=== PATIENT | female | born 1960 | race Caucasian/White ===

== ENCOUNTER → 2018-03-08 | Outpatient (CLI) | payer BC ==
--- NOTE | 2018-03-08 14:51 | BD ---
EXAMINATION TYPE: MG DEXA axial skeleton. DATE OF EXAM: 03/08/2018 COMPARISON: NONE CLINICAL HISTORY: 57 YR OLD FEMALE.....ICD-10 CODE: Z78.0 ASYMPTOMATIC Height: 67.5 Weight: 170 FRAX RISK QUESTIONS: Alcohol (3 or more units per day): NO Family History (Parent hip fracture): NO Glucocorticoids (More than 3mos): NO (Ex: prednisone, prednisolone, methylprednisolone, dexamethasone, and hydrocortisone). History of Fracture in Adulthood: NO Secondary Osteoporosis: NO 1. Type 1 Diabetes: NO 2. Hyperthyroidism: NO 3. Menopause before 45: NO 4. Malnutrition: NO 5. Chronic liver disease: NO Rheumatoid Arthritis: NO Current Tobacco Use: NO RISK FACTORS HISTORY OF: Active: YES Diet low in dairy products/other sources of calcium: NO Postmenopausal woman: YES AT AGE 50 Hyperparathyroidism: NO Adrenal Insufficiency: NO MEDICATIONS: Prednisone or other steroids: ALBUTEROL INHALER PRN How Long: YRS Additional Medications: ENDURAL,CELEXA, STATIN FOR CHOLESTEROL, Additional History: TREMORS EXAM MEASUREMENTS: Bone mineral densitometry was performed using the [employer] System. Bone mineral density as measured about the Lumbar spine is: ----- L1-L4(G/cm2): 1.701 T Score Values are as follows: ----- L1: 2.0 ----- L2: 5.5 ----- L3: 4.6 ----- L4: 4.9 ----- L1-L4: 4.3 Bone mineral density FIRST BONE DENSITY AT MPH Bone mineral density about the R hip (g/cm2): 0.974 Bone mineral density about the L hip (g/cm2): 1.010 T Score values are as follows: -----R Neck: -0.7 -----L Neck: -0.5 -----R Total: -0.3 -----L Total: 0.0 Bone mineral density FIRST BONE DENSITY AT MPH FRAX%S: THERE IS A6.7% CHANCE OF A MAJOR OSTEOPOROTIC FX AND A 0.3% FOR HIP FX.....PROBABILITY OF FX IN 10 YRS TIME IMPRESSION: Normal (Values between +1 and -1 indicate normal bone mass). Consider repeating this study in 5 year s or sooner if there is some new clinical indication. NOTE: T-SCORE=SD OF THE YOUNG ADULT MEAN.
--- NOTE | 2018-03-09 12:00 | MM ---
Reason for exam: screening (asymptomatic). Last mammogram was performed 1 year and 11 months ago. History: Patient is postmenopausal and had first child at age 33. Family history of breast cancer in aunt at age 60. Benign excisional biopsy of the left breast, 1983. Physical Findings: A clinical breast exam by your physician is recommended on an annual basis and results should be correlated with mammographic findings. MG 3D Screening Mammo W/Cad Bilateral CC and MLO view(s) were taken. Prior study comparison: April 01, 2016, bilateral MG diagnostic mammo w CAD SARY. March 24, 2014, bilateral digital screening mammo w/CAD. The breast tissue is heterogeneously dense. This may lower the sensitivity of mammography. Previous mammotome biopsy in the right breast. There is chronic nodularity in the right breast. No significant changes when compared with prior studies. ASSESSMENT: Benign, BI-RAD 2 RECOMMENDATION: Routine screening mammogram of both breasts in 1 year.
== END | disposition home or self-care (01) ==
LOC: RADMAMWWP 12:51
PROVIDERS: ATTEND Family Medicine
DX: R07.9 Chest pain, unspecified (principal); R53.83 Other fatigue
CPT/HCPCS: 77063; 77067; 77080

== ENCOUNTER → 2019-01-11 | Outpatient (CLI) | payer BC ==
[2019-01-11 18:42] LABS: T4, Free (Free Thyroxine) 1.1 ng/dL (0.80-1.80); Vitamin D 25 Hydroxy 19.9 ng/mL (30.0-100.0)
[2019-01-11 20:19] LABS: Anti-DNA, DS unit <1.0 IU/mL; DNA Double-Stranded NEGATIVE (NEGATIVE)
== END | disposition home or self-care (01) ==
LOC: LABWHC1 11:08
PROVIDERS: ATTEND Psychiatry & Neurology Neurology
DX: M79.10 Myalgia, unspecified site (principal); R25.1 Tremor, unspecified; M25.50 Pain in unspecified joint
CPT/HCPCS: 36415; 82306; 84439; 84443; 85652; 86038; 86225

== ENCOUNTER → 2019-01-17 | Outpatient (CLI) | payer MEDICARE ==
--- NOTE | 2019-01-20 21:26 | MR ---
EXAMINATION TYPE: MR brain wo/w con DATE OF EXAM: 01/17/2019 COMPARISON: NONE HISTORY: 58-year-old female rule out left basal ganglionic Cerebrovascular disease or neoplasm. Tremo r and discoordination, right arm. TECHNIQUE: Multiplanar, multisequence images of the brain and brainstem were acquired before and aft er administration of 7.5 mL IV Gadavist. Diffusion weighted imaging is performed. FINDINGS: No evidence for acute infarction, hemorrhage, mass, mass effect, midline shift, herniation, effacemen t of basal cisterns, or extra-axial fluid collection. The ventricles and sulci are age appropriate with mild generalized supratentorial volume loss. Major intracranial flow voids are intact. T2/FLAIR weighted sequences show moderate scattered burden of bright white matter change in both cere bral hemispheres including the subcortical, deep, and periventricular regions. Right greater than lef t basal ganglionic lacunar infarcts are also demonstrated. Midline structures demonstrate normal morphology. The craniocervical junction is normal. Post contrast images demonstrate no evidence of pathologic enhancement. Dural venous sinuses are pat ent. Mild mucosal thickening right maxillary sinus and moderate within the ethmoid air cells. Orbits and g lobes are intact. IMPRESSION: 1. No acute intracranial abnormality seen. No enhancing lesions. 2. Moderate scattered burden of T2 bright white matter change, nonspecific, likely relating to change s of chronic small vessel ischemic disease. Sequela of chronic migraines, Lyme's disease, hypertensio n, and demyelinating disease are some other differential considerations. 3. Moderate chronic ethmoid sinus disease.
== END | disposition home or self-care (01) ==
LOC: RADMRIMAIN 11:55
PROVIDERS: ATTEND Psychiatry & Neurology Neurology
DX: R90.89 Other abnormal findings on diagnostic imaging of central nervous system (principal); R25.1 Tremor, unspecified
CPT/HCPCS: 82565; 70553; 36415; A9585

== ENCOUNTER → 2019-03-11 | Outpatient (CLI) | payer MEDICARE ==
--- NOTE | 2019-03-12 10:00 | MM ---
Reason for exam: screening (asymptomatic). Last mammogram was performed 1 year ago. History: Patient is postmenopausal and had first child at age 33. Family history of breast cancer in aunt at age 60. Benign excisional biopsy of the left breast, 1983. Physical Findings: A clinical breast exam by your physician is recommended on an annual basis and results should be correlated with mammographic findings. MG 3D Screening Mammo W/Cad Bilateral CC and MLO view(s) were taken. Prior study comparison: March 08, 2018, bilateral MG 3d screening mammo w/cad. April 01, 2016, bilateral MG diagnostic mammo w CAD SARY. The breast tissue is heterogeneously dense. This may lower the sensitivity of mammography. Post biposy change on the left. ASSESSMENT: Benign, BI-RAD 2 RECOMMENDATION: Routine screening mammogram of both breasts in 1 year.
== END ==
LOC: RADMAMWWP 07:58
PROVIDERS: ATTEND Family Medicine
DX: Z12.31 Encounter for screening mammogram for malignant neoplasm of breast (principal)
CPT/HCPCS: 77063; 77067

== ENCOUNTER → 2020-08-06 | Outpatient (CLI) | payer MEDICARE ==
--- NOTE | 2020-08-07 11:55 | MM ---
Reason for exam: screening (asymptomatic). Last mammogram was performed 1 year and 5 months ago. History: Patient is postmenopausal and had first child at age 33. Family history of breast cancer in aunt at age 60. Benign excisional biopsy of the left breast, 1983. Physical Findings: A clinical breast exam by your physician is recommended on an annual basis and results should be correlated with mammographic findings. MG 3D Screening Mammo W/Cad Bilateral CC and MLO view(s) were taken. Prior study comparison: March 11, 2019, bilateral MG 3d screening mammo w/cad. March 08, 2018, bilateral MG 3d screening mammo w/cad. The breast tissue is heterogeneously dense. This may lower the sensitivity of mammography. There is no discrete abnormality. No significant changes when compared with prior studies. ASSESSMENT: Negative, BI-RAD 1 RECOMMENDATION: Routine screening mammogram of both breasts in 1 year.
== END | disposition home or self-care (01) ==
LOC: RADMAMWWP 10:17
PROVIDERS: ATTEND Family Medicine
DX: Z12.31 Encounter for screening mammogram for malignant neoplasm of breast (principal)
CPT/HCPCS: 77063; 77067

== ENCOUNTER → 2022-02-23 | Outpatient (CLI) | payer MEDICARE ==
--- NOTE | 2022-02-23 14:57 | BD ---
EXAMINATION TYPE: Axial Bone Density DATE OF EXAM: 02/23/2022 COMPARISON: 03.08.2018 DEXA bone scan. CLINICAL HISTORY: 61 years year old Female. ICD-10 CODE: Z78.0 POST MENOPAUSAL WITHOUT HRT Height: 66.8 Weight: 168 FRAX RISK QUESTIONS: NOTHING TO NOTE HERE RISK FACTORS HISTORY OF: Diet low in dairy products/other sources of calcium: YES Postmenopausal woman: YES, AT AGE 52 YRS OLD Hyperparathyroidism: NO Adrenal Insufficiency: NO MEDICATIONS: Additional Medications: CELEXA, PROPANOL, ANTI-SEIZURE MEDS, STATIN FOR CHOLESTEROL, VIT D, CLONOPIN Additional History: NON ESSENTIAL TREMORS, CHOLESTEROL, ANXIETY/DEPRESSION, EXAM MEASUREMENTS: Bone mineral densitometry was performed using the [employer] System. Bone mineral density as measured about the Lumbar spine is: ----- L1-L4(G/cm2): 1.591 T Score Values are as follows: ----- L1: 2.7 ----- L2: 4.3 ----- L3: 2.8 ----- L4: 3.5 ----- L1-L4: 3.4 Bone mineral density has: Decreased -8.8% since study of: 03.08.2018 Bone mineral density about the R hip (g/cm2): 0.974 Bone mineral density about the L hip (g/cm2): 0.969 T Score values are as follows: -----R Neck: -0.9 -----L Neck: -0.7 -----R Total: -0.3 -----L Total: -0.3 Bone mineral density has: Decreased -2.1% since study of: 03.08.2018 FRAX%s: The graph provided illustrates a 7.7% chance for a major osteoporotic fx and a 0.5% chance fo r the hips probability for fx in 10 years time. IMPRESSION: Normal (Values between +1 and -1 indicate normal bone mass). Consider repeating this study in 5 year s or sooner if there is some new clinical indication. NOTE: T-SCORE=SD OF THE YOUNG ADULT MEAN.
--- NOTE | 2022-02-25 08:51 | MM ---
Reason for exam: screening (asymptomatic). Last mammogram was performed 1 year and 7 months ago. History: Patient is postmenopausal and had first child at age 33. Family history of breast cancer in aunt at age 60. Benign excisional biopsy of the left breast, 1983. Physical Findings: A clinical breast exam by your physician is recommended on an annual basis and results should be correlated with mammographic findings. MG 3D Screening Mammo W/Cad Bilateral CC and MLO view(s) were taken. Prior study comparison: August 06, 2020, bilateral MG 3d screening mammo w/cad. March 11, 2019, bilateral MG 3d screening mammo w/cad. The breast tissue is heterogeneously dense. This may lower the sensitivity of mammography. No significant changes when compared with prior studies. ASSESSMENT: Benign, BI-RAD 2 RECOMMENDATION: Routine screening mammogram of both breasts in 1 year.
== END | disposition home or self-care (01) ==
LOC: RADMAMWWP 08:58
PROVIDERS: ATTEND Family Medicine
DX: Z12.31 Encounter for screening mammogram for malignant neoplasm of breast (principal); Z78.0 Asymptomatic menopausal state; Z80.3 Family history of malignant neoplasm of breast
CPT/HCPCS: 77063; 77067; 77080

== ENCOUNTER → 2022-09-22 | Outpatient (CLI) | payer MEDICARE ==
--- NOTE | 2022-09-22 17:31 | XR ---
EXAMINATION: XR chest 2V DATE AND TIME: 09/22/2022 4:23 PM CLINICAL INDICATION: G25.0 ESSENTIAL TREMOR TECHNIQUE: PA and lateral COMPARISON: None FINDINGS: The lungs are clear. The pleural spaces are negative. The cardiac silhouette is not enlarged. The remainder of the mediastinal silhouette is unremarkable. The skeletal structures and soft tissues are negative for acute findings. IMPRESSION: NO ACUTE PROCESS.
== END | disposition home or self-care (01) ==
LOC: RADXRMAIN 16:12
PROVIDERS: ATTEND Neurological Surgery
DX: G25.0 Essential tremor (principal)
CPT/HCPCS: 71046

== ENCOUNTER → 2022-09-22 | Outpatient (CLI) | payer MEDICARE ==
[2022-09-22 23:22] LABS: Basophils # (A) 0.02 X 10*3/uL (0.00-0.10); Basophils % (A) 0.4 %; Eosinophils # (A) 0.14 X 10*3/uL (0.04-0.35); Eosinophils % (A) 2.5 %; HCT 45.5 % (37.2-46.3); HGB 15.6 g/dL (12.0-15.0); Immature Grans, Automated 0.2 %; Lymphocytes # (A) 1.11 X 10*3/uL (0.90-5.00); Lymphocytes % (A) 20.1 %; MCH 32.6 pg (27.0-32.0); MCHC 34.3 g/dL (32.0-37.0); Mean Platelet Volume 9.1 fL (9.5-12.2); Monocytes # (A) 0.43 X 10*3/uL (0.20-1.00); Monocytes % (A) 7.8 %; NRBC Per 100 WBC 0 /100 WBCS (0.0-0.0); Neutrophils # (A) 3.82 X 10*3/uL (1.80-7.70); Platelet Count 250 X 10*3/uL (140-440); RBC 4.79 X 10*6/uL (4.10-5.20); WBC 5.53 X 10*3/uL (4.50-10.00)
[2022-09-22 23:43] LABS: ALT <5 U/L (8-44); AST 22 U/L (13-35); African American GFR (CKD) 70.9 (60.0-200.0); Albumin 4.3 g/dL (3.8-4.9); Albumin/Globulin Ratio 1.74 (1.60-3.17); Alkaline Phosphatase 90 U/L (41-126); BUN/Creat Ratio 12.28 Ratio (12.00-20.00); Calcium 9.1 mg/dL (8.7-10.3); Carbon Dioxide 31.3 mmol/L (20.0-27.5); Chloride 100 mmol/L (96-109); Globulin 2.5 g/dL (1.6-3.3); Glucose 103 mg/dL (70-110); Non-African American GFR(CKD) 61.2 (60.0-200.0); Potassium 4.3 mmol/L (3.5-5.5); Sodium 137 mmol/L (135-145); Total Protein 6.7 g/dL (6.2-8.2)
[2022-09-22 23:52] LABS: Appearance,Urine Cloudy (Clear); Bilirubin,Urine Negative (Negative); Blood,Urine Negative (Negative); Color,Urine Yellow (Yellow); Ketones,Urine Negative (Negative); Nitrite,Urine Negative (Negative); Specific Gravity,Urine 1.011 (1.001-1.030)
[2022-09-23 00:18] LABS: Bacteria,Urine None Seen /HPF (None Seen)
== END | disposition home or self-care (01) ==
LOC: LABWHC1 15:59
PROVIDERS: ATTEND Family Medicine
DX: Z01.812 Encounter for preprocedural laboratory examination (principal); G25.0 Essential tremor
CPT/HCPCS: 36415; 80053; 81001; 83036; 85025; 85730; 87070

== ENCOUNTER → 2022-09-30 | Outpatient (CLI) | payer MEDICARE ==
[2022-10-01 11:38] LABS: INR 0.96 (0.90-1.11); Prothrombin Time 10.9 sec (9.9-11.9)
== END | disposition home or self-care (01) ==
LOC: LABWHC1 16:00
PROVIDERS: ATTEND Family Medicine
DX: Z01.818 Encounter for other preprocedural examination (principal); G25.0 Essential tremor
CPT/HCPCS: 36415; 85610

== ENCOUNTER → 2022-12-23 | Outpatient (CLI) | payer MEDICARE ==
--- NOTE | 2022-12-23 13:14 | US ---
EXAMINATION TYPE: US transvaginal DATE OF EXAM: 12/23/2022 COMPARISON: NONE CLINICAL HISTORY: N95.0 POSTMENOPAUSAL BLEEDING. Pt states postemenopausal vaginal spotting x 1 month TECHNIQUE: Transvaginal (TV). Transvaginal sonographic images of the pelvis were acquired. EXAM MEASUREMENTS: Uterus: 6.8 x 2.8 x 3.7 cm Endometrial Stripe: 0.2 cm Left Ovary: 1.8 x 1.1 x 1.5 cm 1. Uterus: Anteverted Heterogeneous 2. Endometrium: Small amount of fluid within canal= 0.6 x 0.4 x 0.6 cm 3. Right Ovary: Obscured by overlying bowel gas 4. Left Ovary: wnl 5. Bilateral Adnexa: wnl 6. Posterior cul-de-sac: wnl IMPRESSION: 1. Small amount of fluid within the endometrial canal. Pelvic ultrasound is otherwise unremarkable.
== END | disposition home or self-care (01) ==
LOC: RADUSWWP 12:00
PROVIDERS: ATTEND Family Medicine
DX: N95.0 Postmenopausal bleeding (principal)
CPT/HCPCS: 76830

== ENCOUNTER → 2023-05-05 | Outpatient (CLI) | payer MEDICARE ==
--- NOTE | 2023-05-08 08:39 | MM ---
Reason for Exam: Screening (asymptomatic). Last mammogram was performed 1 year(s) and 3 month(s) ago. Patient History: Menarche at age 16. First Full-Term at age 33. Late child-bearing (after 30). Postmenopausal. 1983, Benign Excisional Biopsy on the left side. Maternal aunt had breast cancer, age 60. Risk Values: Paola 5 year model risk: 2.4%. NCI Lifetime model risk: 9.5%. Prior Study Comparison: 03/11/2019 Bilateral Screening Mammogram, [facility]. 08/06/2020 Bilateral Screening Mammogram, [facility]. 02/23/2022 Bilateral Screening Mammogram, [facility]. Tissue Density: The breast tissue is heterogeneously dense. This may lower the sensitivity of mammography. Findings: Analyzed By CAD. There is no suspicious group of microcalcifications or new suspicious mass in either breast. Overall Assessment: Benign, BI-RAD 2 Management: Screening Mammogram of both breasts in 1 year. . Patient should continue monthly self-breast exams. A clinical breast exam by your physician is recommended on an annual basis. This exam should not preclude additional follow-up of suspicious palpable abnormalities. Note on Paola scores and lifetime risk: 1. A Paola score greater than 3% is considered moderate risk. If this is the case, consider specialist referral to assess eligibility for a risk reducing agent. 2. If overall lifetime risk for the development of breast cancer is 20% or higher, the patient may qualify for future screening with alternating mammogram and breast MRI. Electronically signed and approved by: Donnie Wolfe M.D. Radiologis
== END | disposition home or self-care (01) ==
LOC: RADMAMWWP 09:49
PROVIDERS: ATTEND Family Medicine
DX: Z12.31 Encounter for screening mammogram for malignant neoplasm of breast (principal); Z78.0 Asymptomatic menopausal state; Z80.3 Family history of malignant neoplasm of breast
CPT/HCPCS: 77063; 77067

== ENCOUNTER 2023-05-22 05:36 | Emergency (ER) | payer MEDICARE ==
[2023-05-22 05:46] VITALS: RESP 18; TEMP 98
[2023-05-22 06:42] LABS: Basophils % (A) 0 %; Eosinophils # (A) 0.1 k/uL (0-0.7); Eosinophils % (A) 2 %; HCT 45.5 % (34.0-46.0); HGB 15.6 gm/dL (11.4-16.0); Lymphocytes # (A) 0.9 k/uL (1.0-4.8); Lymphocytes % (A) 13 %; MCH 32.4 pg (25.0-35.0); MCHC 34.3 g/dL (31.0-37.0); MCV 94.6 fL (80.0-100.0); Mean Platelet Volume 7.4; Monocytes # (A) 0.4 k/uL (0-1.0); Monocytes % (A) 6 %; Neutrophils # (A) 5.4 k/uL (1.3-7.7); Neutrophils % (A) 77 %; Platelet Count 232 k/uL (150-450); RBC 4.81 m/uL (3.80-5.40); RDW 12.9 % (11.5-15.5); WBC 7.1 k/uL (3.8-10.6)
--- NOTE | 2023-05-22 06:48 | ED ---
Arrhythmia/Palpitations HPI - General Chief Complaint: Arrhythmia/Palpitations Stated Complaint: Palpitations Time Seen by Provider: 05/22/23 06:05 Source: patient, RN notes reviewed, old records reviewed Mode of arrival: wheelchair Limitations: no limitations - History of Present Illness Initial Comments: 62-year-old nontoxic-appearing female presents to the emergency room with her with complaints of rapid heart rate that has been waking her from sleep for the past 2 weeks. States last 1-2 hours. Resolves after she takes her medication morning medications. She is on propranolol 120 milligrams. Denies any chest pain or shortness of breath. Complaint: rapid heart beat (98-103 by home monitor) -: week(s) (2) Context: awoke with symptoms Associated Symptoms: denies other symptoms Treatments Prior to Arrival: beta-leland (propranalol ) - Related Data Home Medications Medication Instructions Recorded Confirmed Simvastatin [Zocor] 40 mg PO HS 04/11/14 05/22/23 Carbidopa-Levodopa 25-100 mg 1 tab PO BID@0600,1200 05/22/23 05/22/23 [Sinemet 25-100] Clobetasol Propionate [Temovate 1 applic TOPICAL DAILY PRN 05/22/23 05/22/23 0.05% Oint] Cyclobenzaprine [Flexeril] 10 mg PO HS 05/22/23 05/22/23 Omeprazole 20 mg PO DAILY 05/22/23 05/22/23 Propranolol HCl [Propranolol HCl 120 mg PO DAILY 05/22/23 05/22/23 ER] clonazePAM [KlonoPIN] 0.5 mg PO HS 05/22/23 05/22/23 Previous Rx's Medication Instructions Recorded Citalopram Hydrobromide [CeleXA] 20 mg PO HS #30 tab 05/21/14 Allergies Allergy/AdvReac Type Severity Reaction Status Date / Time ultrasound gel Allergy Rash/Hives Uncoded 05/22/23 08:25 Review of Systems ROS Statement: Those systems with pertinent positive or pertinent negative responses have been documented in the HPI. ROS Other: All systems not noted in ROS Statement are negative. Past Medical History Additional Past Medical History / Comment(s): DBS implant for parkinsons, kidney stones History of Any Multi-Drug Resistant Organisms: None Reported Past Surgical History: Cholecystectomy Past Psychological History: Anxiety Smoking Status: Never smoker Past Alcohol Use History: None Reported Past Drug Use History: None Reported General Exam Limitations: no limitations Course Vital Signs 05/22/23 05/22/23 05/22/23 05:40 06:35 07:19 Temperature 98 F Pulse Rate 87 78 76 Respiratory 18 18 18 Rate Blood Pressure 135/80 128/82 129/76 O2 Sat by Pulse 99 98 98 Oximetry EKG Findings - EKG Results: EKG: sinus rhythm (EKG interpreted by me shows sinus rhythm with a ventricular rate of 79, first-degree AV block with MA interval 0.219, QRS 0.88, QTc 0.420, normal axis) Medical Decision Making - Medical Decision Making Was pt. sent in by a medical professional or institution (, PA, MASTER CONTROL TECHNICIAN, urgent care, hospital, or group home...) When possible be specific @ -No Did you speak to anyone other than the patient for history (EMS, parent, family, police, friend...)? What history was obtained from this source @ -No Did you review nursing and triage notes (agree or disagree)? Why? @ -I reviewed and agree with nursing and triage notes Were old charts reviewed (outside hosp., previous admission, EMS record, old EKG, old radiological studies, urgent care reports/EKG's, group home records)? Report findings @ -Old EKG 2013 Differential Diagnosis (chest pain, altered mental status, abdominal pain women, abdominal pain men, vaginal bleeding, weakness, fever, dyspnea, syncope, headache, dizziness, GI bleed, back pain, seizure, CVA, palpatations, mental health, musculoskeletal)? @ -Differential Palpitations Ventricular arrhythmias, atrial arrhythmias, myocardial infarction, anemia, thyrotoxicosis, electrolyte imbalance, hypokalemia, pulmonary embolism, pulmonary disease, drugs, alcohol, anxiety, stress.... This is not meant to be an all-inclusive list. EKG interpreted by me (3pts min.). @ -yes EKG interpreted by me shows sinus rhythm with a ventricular rate of 79, first-degree AV block with MA interval 0.219, QRS 0.88, QTc 0.420, normal axis. First-degree block is new compared to old EKG in 2014. X-rays interpreted by me (1pt min.). @ -None done CT interpreted by me (1pt min.). @ -None done U/S interpreted by me (1pt. min.). @ -None done What testing was considered but not performed or refused? (CT, X-rays, U/S, labs)? Why? @ -None What meds were considered but not given or refused? Why? @ -None Did you discuss the management of the patient with other professionals (professionals i.e. DrTae, PA, MASTER CONTROL TECHNICIAN, lab, RT, psych nurse, high school social studies teacher, electrical test engineer, teacher, transit authority police officer, major case detective)? Give summary @ -No Was smoking cessation discussed for >3mins.? @ -No Was critical care preformed (if so, how long)? @ -No Were there social determinants of health that impacted care today? How? (Homelessness, low income, unemployed, alcoholism, drug addiction, transportation, low edu. Level, literacy, decrease access to med. care, correction, rehab)? @ -No Was there de-escalation of care discussed even if they declined (Discuss DNR or withdrawal of care, Hospice)? DNR status @ -No What co-morbidities impacted this encounter? (DM, HTN, Smoking, COPD, CAD, Cancer, CVA, ARF, Chemo, Hep., AIDS, mental health diagnosis, sleep apnea, morbid obesity)? @ -Parkinson's, anxiety Was patient admitted / discharged? Hospital course, mention meds given and route, prescriptions, significant lab abnormalities, going to OR and other pertinent info. @ -discharged 62-year-old nontoxic-appearing female presents to the emergency room with her with complaints of rapid heart rate that has been waking her from sleep for the past 2 weeks. States last 1-2 hours. Resolves after she takes her medication morning medications. She is on propranolol 120 milligrams. Denies any chest pain or shortness of breath. Patient states that she does see Dr. Gamez neurology who has prescribed her propranolol for her Parkinson's. EKG interpreted by me shows sinus rhythm with a ventricular rate of 79, first- degree AV block with MA interval 0.219, QRS 0.88, QTc 0.420, normal axis. First-degree block is new compared to old EKG in 2014. Troponin negative at 0.012. CBC is unremarkable. TSH within normal limits. Patient has no known cardiac disease. Denies any syncope. Vital signs are stable. No evidence of tachycardia while in the emergency room. No difficulty breathing or chest pain. Patient was observed in the emergency room with no recurrent palpitations. She states her symptoms only occur at night and resolve after she takes her medication in the morning. She was referred to follow up with her primary care doctor this week to discuss her symptoms and options for Holter monitor. Patient family member agreeable to this plan of care. Case discussed with Dr. Capps. Patient history Parkinson's with deep brain stimulator and anxiety. Undiagnosed new problem with uncertain prognosis? @ -No Drug Therapy requiring intensive monitoring for toxicity (Heparin, Nitro, Insulin, Cardizem)? @ -No Were any procedures done? @ -No Diagnosis/symptom? @ -Palpitations Acute, or Chronic, or Acute on Chronic? @ -Acute Uncomplicated (without systemic symptoms) or Complicated (systemic symptoms)? @ -Uncomplicated Side effects of treatment? @ -No Exacerbation, Progression, or Severe Exacerbation? @ -No Poses a threat to life or bodily function? How? (Chest pain, [place], [place], pneumonia, PE, COPD, DKA, ARF, appy, cholecystitis, CVA, Diverticulitis, Homicidal, Suicidal, threat to staff... and all critical care pts) @ -No - Lab Data Result diagrams: 05/22/23 06:32 05/22/23 06:32 Lab Results 05/22/23 05/22/23 05/22/23 Range/Units 06:32 06:32 06:32 WBC 7.1 (3.8-10.6) k/uL RBC 4.81 (3.80-5.40) m/uL Hgb 15.6 (11.4-16.0) gm/dL Hct 45.5 (34.0-46.0) % MCV 94.6 (80.0-100.0) fL MCH 32.4 (25.0-35.0) pg MCHC 34.3 (31.0-37.0) g/dL RDW 12.9 (11.5-15.5) % Plt Count 232 (150-450) k/uL MPV 7.4 Neutrophils % 77 % Lymphocytes % 13 % Monocytes % 6 % Eosinophils % 2 % Basophils % 0 % Neutrophils # 5.4 (1.3-7.7) k/uL Lymphocytes # 0.9 L (1.0-4.8) k/uL Monocytes # 0.4 (0-1.0) k/uL Eosinophils # 0.1 (0-0.7) k/uL Basophils # 0.0 (0-0.2) k/uL PT 10.9 (9.0-12.0) sec INR 1.0 (<1.2) APTT 25.5 (22.0-30.0) sec Sodium 138 (137-145) mmol/L Potassium 3.9 (3.5-5.1) mmol/L Chloride 104 (98-107) mmol/L Carbon Dioxide 30 (22-30) mmol/L Anion Gap 4 mmol/L BUN 16 (7-17) mg/dL Creatinine 0.93 (0.52-1.04) mg/dL Est GFR (CKD-EPI)AfAm 76 (>60 ml/min/1.73 sqM) Est GFR (CKD-EPI)NonAf 66 (>60 ml/min/1.73 sqM) Glucose 118 H (74-99) mg/dL Calcium 8.7 (8.4-10.2) mg/dL Magnesium 1.9 (1.6-2.3) mg/dL Total Bilirubin 2.3 H (0.2-1.3) mg/dL AST 21 (14-36) U/L ALT 12 (4-34) U/L Alkaline Phosphatase 86 (38-126) U/L Troponin I (0.000-0.034) ng/mL Total Protein 6.7 (6.3-8.2) g/dL Albumin 3.8 (3.5-5.0) g/dL TSH 1.300 (0.465-4.680) mIU/L 05/22/23 Range/Units 06:32 WBC (3.8-10.6) k/uL RBC (3.80-5.40) m/uL Hgb (11.4-16.0) gm/dL Hct (34.0-46.0) % MCV (80.0-100.0) fL MCH (25.0-35.0) pg MCHC (31.0-37.0) g/dL RDW (11.5-15.5) % Plt Count (150-450) k/uL MPV Neutrophils % % Lymphocytes % % Monocytes % % Eosinophils % % Basophils % % Neutrophils # (1.3-7.7) k/uL Lymphocytes # (1.0-4.8) k/uL Monocytes # (0-1.0) k/uL Eosinophils # (0-0.7) k/uL Basophils # (0-0.2) k/uL PT (9.0-12.0) sec INR (<1.2) APTT (22.0-30.0) sec Sodium (137-145) mmol/L Potassium (3.5-5.1) mmol/L Chloride (98-107) mmol/L Carbon Dioxide (22-30) mmol/L Anion Gap mmol/L BUN (7-17) mg/dL Creatinine (0.52-1.04) mg/dL Est GFR (CKD-EPI)AfAm (>60 ml/min/1.73 sqM) Est GFR (CKD-EPI)NonAf (>60 ml/min/1.73 sqM) Glucose (74-99) mg/dL Calcium (8.4-10.2) mg/dL Magnesium (1.6-2.3) mg/dL Total Bilirubin (0.2-1.3) mg/dL AST (14-36) U/L ALT (4-34) U/L Alkaline Phosphatase (38-126) U/L Troponin I <0.012 (0.000-0.034) ng/mL Total Protein (6.3-8.2) g/dL Albumin (3.5-5.0) g/dL TSH (0.465-4.680) mIU/L Disposition Clinical Impression: Intermittent palpitations Disposition: HOME SELF-CARE Condition: Good Instructions (If sedation given, give patient instructions): Heart Palpitations (ED) Additional Instructions: Please follow-up with your primary care doctor about your palpitations this week. Your labs and EKG showed no areas of concern today. Return to the emergency room with any new or concerning symptoms including chest pain or dif ficulty in breathing. Is patient prescribed a controlled substance at d/c from ED?: No Referrals: Kinjal Whalen MD [Primary Care Provider] - 1-2 days Time of Disposition: 08:14
[2023-05-22 07:03] LABS: Partial Thromboplastin Time 25.5 sec (22.0-30.0); Prothrombin Time 10.9 sec (9.0-12.0)
[2023-05-22 07:49] LABS: ALT 12 U/L (4-34); Calcium 8.7 mg/dL (8.4-10.2); Magnesium 1.9 mg/dL (1.6-2.3); Potassium 3.9 mmol/L (3.5-5.1); Sodium 138 mmol/L (137-145)
[2023-05-22 08:11] LABS: AST 21 U/L (14-36); African American GFR (CKD) 76 (>60 ml/min/1.73 sqM); Albumin 3.8 g/dL (3.5-5.0); Alkaline Phosphatase 86 U/L (38-126); Anion Gap 4 mmol/L; Blood Urea Nitrogen 16 mg/dL (7-17); Carbon Dioxide 30 mmol/L (22-30); Chloride 104 mmol/L (98-107); Glucose 118 mg/dL (74-99); Non-African American GFR(CKD) 66 (>60 ml/min/1.73 sqM); Total Bilirubin 2.3 mg/dL (0.2-1.3); Total Protein 6.7 g/dL (6.3-8.2)
[2023-05-22 09:54] VITALS: BP 133/73; PULSE 78
== END 2023-05-22 09:54 | disposition home or self-care (01) ==
LOC: EC 05:36
DX: R00.2 Palpitations (principal); F41.9 Anxiety disorder, unspecified; Z91.048 Other nonmedicinal substance allergy status; Z79.899 Other long term (current) drug therapy
CPT/HCPCS: 36415; 80053; 83735; 84443; 84484; 85025; 85610; 85730; 93005; 99285

== ENCOUNTER → 2023-09-06 | Outpatient (CLI) | payer MEDICARE ==
--- NOTE | 2023-09-06 15:52 | US ---
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 Patients left toe curls up. History of: Smoker: No Hypertension: No Diabetic: No Hyperlipidemia: Yes TIA/CVA: No Previous Vascular Surgery: No CAD: No NE: No Vascular Ulcers: No Claudication: No Gangrene: No Doppler Waveforms: Right: Multiphasic Left: Multiphasic Right Brachial Pressure: 128 Left Brachial Pressure: 116 Ankle-Brachial Indices: Right: 1.1 Left: 1.2 Toe Brachial Indices: Right: 0.9 Left: 1.0 IMPRESSION: Normal DAGOBERTO indices.
== END | disposition home or self-care (01) ==
LOC: RADUSWWP 14:23
PROVIDERS: ATTEND Psychiatry & Neurology Neurology
DX: R23.8 Other skin changes (principal); R23.0 Cyanosis; R25.2 Cramp and spasm
CPT/HCPCS: 93922

== ENCOUNTER → 2024-07-30 | Outpatient (CLI) | payer MEDICARE ==
--- NOTE | 2024-07-31 13:00 | MM ---
Reason for Exam: Screening (asymptomatic). Last mammogram was performed 1 year(s) and 3 month(s) ago. Patient History: Menarche at age 16. First Full-Term at age 21. Postmenopausal. 1984, Benign Excisional Biopsy on the left side. Risk Values: Paola 5 year model risk: 1.6%. NCI Lifetime model risk: 5.8%. Prior Study Comparison: 08/06/2020 Bilateral Screening Mammogram, [facility]. 02/23/2022 Bilateral Screening Mammogram, [facility]. 05/05/2023 Bilateral MG 3D screening mammo w/cad, [facility]. Tissue Density: The breasts are heterogeneously dense, which may obscure small masses. Findings: Analyzed By CAD. There is no suspicious group of microcalcifications or new suspicious mass in either breast. Metallic device in the axilla limits its evaluation. Chronic nodularity in the central margin of the right breast and upper left breast stable from multiple prior exams. Benign calcifications. Stable chronic nodularity inner margin right breast. Overall Assessment: Benign, BI-RAD 2 Management: Screening Mammogram of both breasts in 1 year. . Patient should continue monthly self-breast exams. A clinical breast exam by your physician is recommended on an annual basis. This exam should not preclude additional follow-up of suspicious palpable abnormalities. Note on Paola scores and lifetime risk: 1. A Paola score greater than 3% is considered moderate risk. If this is the case, consider specialist referral to assess eligibility for a risk reducing agent. 2. If overall lifetime risk for the development of breast cancer is 20% or higher, the patient may qualify for future screening with alternating mammogram and breast MRI. Electronically signed and approved by: Eliseo Marino M.D. Radiologis
== END | disposition home or self-care (01) ==
LOC: RADMAMWWP 10:05
PROVIDERS: ATTEND Family Medicine
DX: Z12.31 Encounter for screening mammogram for malignant neoplasm of breast
CPT/HCPCS: 77063; 77067

== ENCOUNTER → 2025-01-28 | Outpatient (CLI) | payer MEDICARE ==
--- NOTE | 2025-01-28 14:06 | FL ---
EXAMINATION TYPE: FL barium swallow w video DATE OF EXAM: 01/28/2025 CLINICAL HISTORY: 64 year-old female history of Parkinson's disease with food sticking in throat, Dys phagia. TECHNIQUE: Deglutition study is performed utilizing thin liquid barium, barium thick pudding, and ba rium coated cracker. Total dose area product (DAP) in uGy*m?, mGy*cm? (or similar): 50 mGycm2. One i mage submitted. COMPARISON: None. FINDINGS: There is some premature bolus loss noted to the piriform sinuses. There is aspiration of th in liquids which improved with chin tuck maneuver. With chin tuck maneuver, no other penetration or a spiration is seen. IMPRESSION: Some premature bolus loss and aspiration with thin liquids that resolves with chin tuck m aneuver. Please refer to speech therapist notes for further details if necessary. [facility], , 01/28/2025 2:03 PM
== END | disposition home or self-care (01) ==
LOC: RADFLMAIN 11:45
PROVIDERS: ATTEND Psychiatry & Neurology Neurology
DX: R13.10 Dysphagia, unspecified (principal)
CPT/HCPCS: 74230